=== PATIENT | male | born 1975 | race Caucasian/White ===

== ENCOUNTER 2016-04-19 12:58 | Emergency (ER) | payer OTHER ==
[~2016-04-19] VITALS: Ht 177.8 cm; Wt 86.1 kg
[2016-04-19 14:25] LABS: HEMATOCRIT 43.1 % (38.0-50.0); MCH 30.2 PG (29.0-34.0); MCHC 35.3 G/DL (30.0-36.0); MCV 85.7 FL (86-99); MEAN PLAT.VOLUME 9.8 uM^3 (9.0-12.4); PLATELET COUNT 293 K/uL (156-360); RBC DIS.WIDTH-CV 12.6 % (11.8-14.6); RBC DIS.WIDTH-SD 38.7 % (39-53); RED BLOOD COUNT 5.03 M/uL (4.00-5.50); WHITE BLOOD COUNT 7.5 K/uL (4.1-10.2)
[2016-04-19 14:36] LABS: CHLORIDE 107 mEq/L (99-109); SODIUM 141 mEq/L (136-147)
[2016-04-19 14:38] LABS: GLUCOSE 92 mg/dL (70-99)
[2016-04-19 14:39] LABS: ANION GAP 10 MEQ/L (2-14)
[2016-04-19 14:43] LABS: GFR ESTIMATE (CALCULATED) > 59 mL/min/; UREA NITROGEN (BUN) 13 mg/dL (9-23)
[2016-04-19 14:45] LABS: TROP-I INTERPRETATION NEGATIVE; TROPONIN-I < 0.01 ng/mL (0.0-0.30)
[2016-04-19 17:44] LABS: TROP-I INTERPRETATION NEGATIVE; TROPONIN-I < 0.01 ng/mL (0.0-0.30)
[2016-04-19 18:15] VITALS: BP 116/78
== END 2016-04-19 18:16 | disposition home or self-care (01) ==
LOC: EME 12:58
PROVIDERS: Nurse Practitioner Family
DX: R07.9 Chest pain, unspecified (principal); R06.02 Shortness of breath
CPT/HCPCS: 71020; 80048; 84484; 85027; 93005; 99281; 99284